=== PATIENT | female | born 1945 | race Caucasian/White ===

== ENCOUNTER 2019-10-20 07:33 | Day surgery (SDC) | payer OTHER ==
[2019-10-19 10:24] VITALS: BMI 26.4
[~2019-10-20 07:33] MED LIST: ceFAZolin SODIUM 1 GM VIAL IVPB ONE
[2019-10-20] MEDS ORDERED: ISOSULFAN BLUE 10 MG/ML VIAL SQ ONE (11:27)
[2019-10-20] MEDS ORDERED: LIDOCAINE HCL 1%, 10 MG/ML (20ML VIAL) ONE ×3 (11:27→12:58)
[2019-10-20] MEDS ORDERED: PROPOFOL 20 ML ONE (12:10)
[2019-10-20] MEDS ORDERED: ONDANSETRON 4 MG/2 ML VIAL IVPUSH PRN (12:33)
[2019-10-20] MEDS ORDERED: LACTATED RINGERS SOLUTION 1,000 ML IV SCH (12:45)
[2019-10-20] MEDS ORDERED: LIDOCAINE HCL/PF 2% SDV 5ML VIAL ONE (12:51)
[2019-10-20] MEDS ORDERED: ceFAZolin SODIUM 1 GM VIAL ONE (12:51)
[2019-10-20] MEDS ORDERED: DEXAMETHASONE SOD PHOSPHATE 4 MG/1 ML VIAL ONE (12:51)
[2019-10-20] MEDS ORDERED: ceFAZolin SODIUM 1 GM VIAL IVPB ONE (12:52)
[2019-10-20] MEDS ORDERED: LIDOCAINE HCL 1%, 10 MG/ML (20ML VIAL) NR ONE ×2 (13:02)
[2019-10-20] MEDS ORDERED: PHENYLEPHRINE HCL 10 MG/1 ML SINGLE DOSE VIAL ONE (13:31)
[2019-10-20 15:16] VITALS: TEMP 97.3
[2019-10-20] MEDS ORDERED: ACETAMINOPHEN 325 MG TABLET (FP) ONE (15:26)
[2019-10-20] MEDS ORDERED: ACETAMINOPHEN 325 MG TABLET (FP) PO ONE (15:30)
[2019-10-20 16:36] VITALS: BP 129/85; PULSE 94
--- NOTE | 2019-10-21 13:45 | OP ---
DATE OF OPERATION: 10/20/2019 PREOPERATIVE DIAGNOSIS: Right breast intraductal papilloma, left breast papillary lesion with atypia. POSTOPERATIVE DIAGNOSIS: Right breast intraductal papilloma, left breast papillary lesion with atypia. PROCEDURE: Right breast wide localized excisional biopsy, left breast wide localized lumpectomy. SURGEON: Saray Livingston MD ANESTHESIA: General. ESTIMATED BLOOD LOSS: Minimal. COMPLICATIONS: None. This is a sterile procedure. INDICATION FOR PROCEDURE: Patient had an ultrasound that noted a solid mass in the right 12 o'clock and left 3 o'clock location. A needle biopsy of both of these was performed under ultrasound guidance. The right side showed a papillary lesion without atypia, and the left side showed a papillary lesion with atypia. My recommendation was an excision of both of these. The procedure was discussed with her, and all of her questions answered. PROCEDURE IN DETAIL: Patient was brought to [facility] in [place], was taken to mammography where a wire was used to localize the clip in the upper right and outer left breast. She was then brought up to the operating room, and after induction of general anesthesia and IV antibiotics, both breasts were prepped and draped in usual sterile fashion. First, the left breast lumpectomy was performed. The area in the outer left breast was anesthetized with 1% lidocaine without epinephrine. A radial incision was made in the left 3 to 4 o'clock location and a wire was used as a guide to get down to the area of interest, which was excised en bloc, tagged with a long stitch lateral, short stitch superior, sent for a specimen radiograph as a left breast lumpectomy. The specimen radiograph showed the clip and wire to be intact within the specimen. Once hemostasis was assured, I then moved on to the right breast excisional biopsy. The upper outer right breast was anesthetized with 1% lidocaine without epinephrine, and a curvilinear incision was made in the right breast 12:30 to 1 o'clock location. A wire was used as a guide to get down to the area of interest, which was excised en bloc and sent as a right breast excisional biopsy for specimen radiograph. Specimen radiograph showed again the wire and clip intact within the specimen. The specimen was then sent to Pathology for permanent section in formalin. Hemostasis was assured with electrocautery. The right breast incision was closed in the routine fashion. The parenchyma was approximated with interrupted 2-0 Vicryl. Skin approximated with interrupted 3-0 Vicryl running and 4-0 Biosyn. A sterile dressing with Tegaderm and 4 x 4's applied. Next, the left breast incision was closed in the routine fashion. The parenchyma was approximated with 2-0 Vicryl. Skin approximated with interrupted 3-0 Vicryl with running 4-0 Biosyn. A sterile dressing with Tegaderm and 4 x 4's applied. She tolerated the procedure well, was extubated on the operating room table, taken to recovery in good condition. Michael [id number]
--- NOTE | 2019-10-26 11:02 | PATH ---
Surgical Pathology Report Patient Name: MARY AREVALO [facility]. Rec. #: [id number] /Age/Gender: 1945 (Age: 73) / F Account: [id number] Location: [facility] SURGICAL Taken: 10/20/2019 Received: 10/20/2019 Reported: 10/26/2019 Physicians: Saray Livingston M.D. Specimen(s) Received A: RIGHT BREAST MASS B: LEFT BREAST MASS Clinical History Right breast papillary lesion, left breast papilloma with atypia Final Diagnosis A. BREAST, RIGHT, LUMPECTOMY: DUCTAL CARCINOMA IN SITU (DCIS), INTERMEDIATE NUCLEAR GRADE, CRIBRIFORM, SOLID, AND PAPILLARY TYPES, WITH FOCAL NECROSIS AND ASSOCIATED MICROCALCIFICATIONS, PRESENT IN SEVEN OF TWELVE SLIDES (7/12). DCIS IS ADJACENT CHANGES OF PREVIOUS BIOPSY. DCIS SPANS 1.3 CM IN GREATEST MICROSCOPIC DIMENSION. DCIS IS <1 MM FROM INKED SURGICAL MARGIN. INTRADUCTAL PAPILLOMA, ATYPICAL AND FLORID USUAL DUCTAL HYPERPLASIA IN A BACKGROUND OF STROMAL FIBROSIS, MICROCYSTS, COLUMNAR CELL CHANGES, APOCRINE METAPLASIA, AND ASSOCIATED MICROCALCIFICATIONS. PATHOLOGIC STAGE (pTNM): pTis pNx. SEE CASE SUMMARY BELOW. B. BREAST, LEFT, LUMPECTOMY: DUCTAL CARCINOMA IN SITU (DCIS), INTERMEDIATE NUCLEAR GRADE, CRIBRIFORM, SOLID, AND PAPILLARY TYPES, PRESENT IN ONE OF TEN SLIDES (1/10), WITH FOCAL NECROSIS AND ASSOCIATED MICROCALCIFICATIONS. DCIS IS ADJACENT PRIOR BIOPSY SITE AND FOCALLY SCLEROSED INTRADUCTAL PAPILLOMA. DCIS SPANS 1 CM IN GREATEST MICROSCOPIC DIMENSION. DCIS IS <1 MM FROM CLOSEST DEEP AND INFERIOR MARGINS; REMAINDER OF MARGINS ARE > 3 MM AWAY. ATYPICAL AND FLORID USUAL DUCTAL HYPERPLASIA IN A BACKGROUND OF STROMAL FIBROSIS, MICROCYSTS, COLUMNAR CELL CHANGES, APOCRINE METAPLASIA, AND ASSOCIATED MICROCALCIFICATIONS. PATHOLOGIC STAGE (pTNM): pTis pNx. SEE CASE SUMMARY BELOW. Comment: Part A, Immunohistochemical stains performed and interpreted at [facility] show preserved myoepithelial cells (p63+, SMM-HC+) in areas of DCIS. Findings discussed with Dr. Livingston, 10/26/19. Comments DCIS of the Breast: Surgical Pathology Cancer Case Summary (Part A- Right) (Based on AJCC TNM 8 th edition) Procedure _X_ Excision (less than total mastectomy) Specimen Laterality _X_ Right Size (Extent) of DCIS Estimated size (extent) of DCIS (greatest dimension using gross and microscopic evaluation): at least (millimeters): 13 mm Number of blocks with DCIS: 7 Number of blocks examined: 12 Note: The size (extent) of DCIS is an estimation of the volume of breast tissue occupied by DCIS. Histologic Type _X_ Ductal carcinoma in situ Architectural Patterns _X_ Cribriform _X_ Papillary _X_ Solid Nuclear Grade _X_ Grade II (intermediate) Necrosis _X_ Present, focal (small foci or single cell necrosis) Margins _X__ Uninvolved by DCIS Distance from closest margin (millimeters): <1 mm Specify closest margin: Inked surgical margin Regional Lymph Nodes _X_ No lymph nodes submitted or found Pathologic Stage Classification (pTNM, AJCC 8th Edition) Primary Tumor (pT) _X_ pTis (DCIS): Ductal carcinoma in situ Regional Lymph Nodes (pN) _X_ pNx _ Regional lymph nodes cannot be assessed Microcalcifications _X_ Present in DCIS _X_ Present in nonneoplastic tissue Biomarker Studies Results of ER and NV studies performed on this specimen (block# A7) at [facility] are as follows: ER (clone [id number] mouse monoclonal antibody by Leica): ~80% nuclear staining with strong intensity (Positive). NV (clone16 mouse monoclonal antibody by Leica): ~40% nuclear staining with moderate to strong intensity (Positive). DCIS of the Breast: Surgical Pathology Cancer Case Summary (Part B- Left) (Based on AJCC TNM 8 th edition) Procedure _X_ Excision (less than total mastectomy) Specimen Laterality _X_ Left Size (Extent) of DCIS Estimated size (extent) of DCIS (greatest dimension using gross and microscopic evaluation): at least (millimeters): 10 mm Number of blocks with DCIS: 1 Number of blocks examined: 10 Note: The size (extent) of DCIS is an estimation of the volume of breast tissue occupied by DCIS. Histologic Type _X_ Ductal carcinoma in situ Architectural Patterns _X_ Cribriform _X_ Papillary _X_ Solid Nuclear Grade _X_ Grade II (intermediate) Necrosis _X_ Focal Margins _X_ Uninvolved by DCIS Distance from closest margin (millimeters): <1 mm deep and inferior margins Specify closest margin: deep and inferior Regional Lymph Nodes _X_ No lymph nodes submitted or found Pathologic Stage Classification (pTNM, AJCC 8th Edition) Primary Tumor (pT) _X_ pTis (DCIS): Ductal carcinoma in situ Regional Lymph Nodes (pN) _X_ pNx- Regional lymph nodes cannot be assessed Microcalcifications _X_ Present in DCIS _X_ Present in nonneoplastic tissue Biomarker Studies Results of ER and NV studies performed on this specimen (block# B6) at [facility] are as follows: ER (clone [id number] mouse monoclonal antibody by Leica): ~85% nuclear staining with moderate to strong intensity (Positive). NV (clone16 mouse monoclonal antibody by Leica): ~75% nuclear staining with moderate to strong intensity (Positive). Positive and negative controls (internal if applicable) show appropriate results. Formalin fixation and cold ischemic times are within current ASCO/CAP recommendations for ER, NV and Her2 testing. Electronically Signed Isabell Bradshaw M.D. Gross Description A. Received fresh on an AccuGrid labeled with the patient's name and indicated on the requisition to be from the right breast, is a 6.4 x 4.5 x 2.4 cm irregular, unoriented portion of fibroadipose tissue with a needle localization wire present. There is no skin or nipple present. The specimen is inked blue and serially sectioned. Sectioning reveals a 5.0 x 1.9 x 0.8 cm marquez, indurated, ill-defined lesion focally abutting the radial margin. [employer] sections including the entire lesion are sequentially submitted in 12 cassettes. B. Received fresh on an AccuGrid, labeled with the patient's name and indicated on the requisition to be from the left breast, is a 4.6 x 3.9 x 0.9 cm irregular portion of fibroadipose tissue with a needle localization wire present. There is a short suture marking the superior aspect and a long suture marking the lateral aspect of the specimen, per the surgeon. There is no skin or nipple present. The specimen is inked as follows: Superior and lateral blue; inferior green; medial yellow; anterior red; deep black. The specimen is serially sectioned from medial to lateral. Sectioning reveals diffuse dense, white, focally firm and cystic parenchyma. The specimen is entirely and sequentially submitted in 10 cassettes with the medial margin in cassette 1 and the lateral margin in cassette 10. Time to formalin fixation: 72 minutes Total formalin fixation time: Approximately 27 hours. 10/21/2019 [facility]10/21/2019
== END 2019-10-20 16:25 | disposition home or self-care (01) ==
LOC: JASU-SURG 07:33
PROVIDERS: ATTEND Surgery
PROC: 0HBV0ZZ Excision of Bilateral Breast, Open Approach (ICD-10-PCS; principal; 2019-10-20 12:00)
DX: D05.11 Intraductal carcinoma in situ of right breast (principal); D05.12 Intraductal carcinoma in situ of left breast; D24.1 Benign neoplasm of right breast; N60.31 Fibrosclerosis of right breast; N60.12 Diffuse cystic mastopathy of left breast; N60.11 Diffuse cystic mastopathy of right breast; N60.32 Fibrosclerosis of left breast; N64.89 Other specified disorders of breast
CPT/HCPCS: 19281; 76098-TC-FY; 88307-TC; 88341-TC; 88342-TC; 94760

== ENCOUNTER 2020-02-05 07:41 | Day surgery (SDC) | payer OTHER ==
[2020-02-05 08:12] VITALS: BMI 23.6
[2020-02-05] MEDS ORDERED: ONDANSETRON 4 MG/2 ML VIAL IVPUSH PRN ×2 (09:24→10:13)
[2020-02-05] MEDS ORDERED: PROMETHAZINE HCL 25 MG/1 ML VIAL IVPUSH PRN ×2 (09:24→10:13)
[2020-02-05] MEDS ORDERED: oxyCODONE HCL 5 MG TABLET PO PRN (09:24)
[2020-02-05] MEDS ORDERED: LACTATED RINGERS SOLUTION 1,000 ML IV SCH ×2 (09:30→10:15)
[2020-02-05] MEDS ORDERED: LIDOCAINE HCL 1%, 10 MG/ML (20ML VIAL) ONE (09:38)
[2020-02-05] MEDS ORDERED: SEVOFLURANE 250 ML BTL ONE (09:58)
[2020-02-05] MEDS ORDERED: ACETAMINOPHEN INJECTION 100 ML IVPB ONE (09:58)
[2020-02-05] MEDS ORDERED: PROPOFOL 20 ML ONE (10:05)
[2020-02-05] MEDS ORDERED: DEXAMETHASONE SOD PHOSPHATE 4 MG/1 ML VIAL ONE (10:05)
[2020-02-05] MEDS ORDERED: SUCCINYLCHOLINE CHLORIDE 200 MG/10 ML SYRINGE ONE (10:08)
[2020-02-05] MEDS ORDERED: MIDAZOLAM HCL 2 MG/2 ML SINGLE DOSE VIAL ONE (10:08)
[2020-02-05] MEDS ORDERED: SODIUM CHLORIDE 0.9% P/F 10 ML VIAL IJ ONE ×2 (10:16→11:17)
[2020-02-05] MEDS ORDERED: ceFAZolin SODIUM 1 GM VIAL ONE (10:16)
[2020-02-05] MEDS ORDERED: ceFAZolin SODIUM 1 GM VIAL IVPB ONE (11:00)
[2020-02-05] MEDS ORDERED: LIDOCAINE HCL 1%, 10 MG/ML (50 mL VIAL) INF ONE ×2 (11:11)
[2020-02-05] MEDS ORDERED: EPHEDRINE SULFATE/0.9% NACL/PF 50 MG/10 ML SYRINGE NR ONE (11:29)
[2020-02-05 13:18] VITALS: PULSE 97
[2020-02-05 13:54] VITALS: BP 132/72; TEMP 98.2
== END 2020-02-05 13:50 | disposition home or self-care (01) ==
LOC: JASU-SURG 07:41
PROVIDERS: ATTEND Surgery
PROC: 0HBV0ZZ Excision of Bilateral Breast, Open Approach (ICD-10-PCS; principal; 2020-02-05 10:00)
DX: D05.11 Intraductal carcinoma in situ of right breast (principal); D05.12 Intraductal carcinoma in situ of left breast
CPT/HCPCS: 88307-TC; 94760; J0131